=== PATIENT | female | born 1995 | race Two or more races ===

== ENCOUNTER 2019-10-12 08:48 | Outpatient (CLI) | payer MEDICAID | END 2019-10-12 23:59 | disposition home or self-care (01) | LOC: LAB 08:48 | PROVIDERS: ATTEND Student in an Organized Health Care Education/Training Program | DX: Z01.812 Encounter for preprocedural laboratory examination (principal); Z11.59 Encounter for screening for other viral diseases | CPT/HCPCS: C9803; U0003 ==

== ENCOUNTER 2019-10-15 06:08 | Day surgery (SDC) | payer MEDICAID ==
[2019-10-15] MEDS ORDERED: ANESTHESIA TRAY IN PYXIS 1 EA TRAY MC ONE (07:05)
[2019-10-15] MEDS ORDERED: LIDOCAINE HCL/MPF 1% 30 ML VIAL IJ ONE (07:05)
[2019-10-15] MEDS ORDERED: BUPIVACAINE 0.5 % PF 150 MG/30 ML VIAL ONE (07:05)
[2019-10-15] MEDS ORDERED: BETA ACET/BET NA PHOS MDV 6 MG/ML VIAL ONE (07:06)
[2019-10-15] MEDS ORDERED: BUPIVACAINE MPF 0.5% W/EPI INJ 30 ML VIAL ONE (07:07)
[2019-10-15] MEDS ORDERED: IOHEXOL 240MG/ML 50 ML IV ONE (07:41)
[2019-10-15] MEDS ORDERED: ALBUTEROL FS 2.5 MG/3 ML VIAL.NEB ONE (08:34)
[2019-10-15] MEDS ORDERED: ONDANSETRON HCL/PF 4 MG/2 ML VIAL ONE (08:36)
[2019-10-15] MEDS ORDERED: ACETAMINOPHEN ES 500 MG TABLET ONE (08:48)
== END 2019-10-15 09:30 | disposition home or self-care (01) ==
LOC: DS 06:08
PROVIDERS: ATTEND Student in an Organized Health Care Education/Training Program
DX: M25.852 Other specified joint disorders, left hip (principal); J45.909 Unspecified asthma, uncomplicated; E66.01 Morbid (severe) obesity due to excess calories; Z79.899 Other long term (current) drug therapy
CPT/HCPCS: 27095; 73525; 77002; 84703; A6402; J0702; J2405; J3490 ×2; Q9966; J2704